=== PATIENT | male | born 1975 | race Caucasian/White ===

== ENCOUNTER 2021-07-19 18:20 | Inpatient (IN) | payer SELFPAY ==
[~2021-07-19] VITALS: Ht 175.3 cm; Wt 92.1 kg
[2021-07-19] MEDS: ATORVASTATIN 20 MG TAB PO SCH (06:28)
[2021-07-19] MEDS: NACL 0.9% 1,000 ML IV SCH (06:28)
[2021-07-19 18:26] VITALS: BP 234/112
--- NOTE | 2021-07-19 19:05 | NUR ---
[facility] ASSISTANT CONTACTED CT REGARDING CODE BRAIN; TECH REPORTS 10-15 MINUTE ETA D/T PERFORMING A PROCEDURE ON ANOTHER PT.
[2021-07-19 19:19] LABS: BASOPHILS % (AUTO) 0.5 % (0.0-2.0); EOSINOPHILS # (AUTO) 0.2 K/uL (0-0.4); EOSINOPHILS % (AUTO) 2.8 % (0.0-4.0); HEMATOCRIT 41.7 % (36-52); HEMOGLOBIN 14.6 g/dL (12.0-18.0); LYMPHOCYTES # (AUTO) 1.5 K/uL (2.0-11.5); LYMPHOCYTES % (AUTO) 24.3 % (20.5-51.1); MEAN CORPUSCULAR HEMOGLOBIN 29 pg (27-31); MEAN CORPUSCULAR HGB CONC 35 g/dL (33-37); MEAN CORPUSCULAR VOLUME 83.1 fL (80-94); MONOCYTES # (AUTO) 0.6 K/uL (0.8-1.0); MONOCYTES % (AUTO) 10.5 % (1.7-9.3); NEUTROPHILS # (AUTO) 3.7 K/uL (1.8-7.7); NEUTROPHILS % (AUTO) 61.9 % (42.2-75.2); PLATELET COUNT (AUTO) 198 K/uL (140-450); RED BLOOD CELL COUNT(AUTO) 5.02 MIL/uL (4.20-6.10); RED CELL DISTRIBUTION WIDTH 13.5 % (11.6-13.7); WHITE BLOOD COUNT (AUTO) 6.1 K/uL (4.8-10.8)
--- NOTE | 2021-07-19 19:22 | NUR ---
Report and transfer of care endorsed to RALPH Stanton.
[2021-07-19 19:43] LABS: ALBUMIN 3.8 g/dL (3.4-5.0); ANION GAP 13.1 (8-16); CARBON DIOXIDE 27.7 mmol/L (21-32); CREATININE 1.2 mg/dL (0.6-1.3); TOTAL BILIRUBIN 0.6 mg/dL (0.0-1.0)
[2021-07-19 19:46] LABS: POTASSIUM 2.8 mmol/L (3.5-5.1)
--- NOTE | 2021-07-19 19:53 | NUR ---
received pt from day shift RALPH Myers. pt currently a/o x 4, gcs 15. able to move all extremities freely. pt is a 46 year old male with hx of HTN coming from home for cc poss stroke s/sx. LKW 0630 today. sts that he had dysarthria, paresthesias that both have resolved ever since. currently performed [facility] and is score of 0. dysphagia screen pass. noted BP to be 220s each time. Dr Cruz notified. sts wait until read result of CT.
--- NOTE | 2021-07-19 20:35 | NUR ---
pt taken to CT scan via [facility].
--- NOTE | 2021-07-19 21:00 | NUR ---
pt returned to CT via [facility]
[2021-07-19] MEDS ORDERED: hydrALAZINE 20 MG/ML VIAL IVP ONE (21:50)
--- NOTE | 2021-07-19 22:16 | NUR ---
Dr. Cruz with pt for E
[2021-07-19] MEDS ORDERED: KCL 20 MEQ/WATER INJ PREMIX 100 ML IV ONE (22:35)
[2021-07-19] MEDS ORDERED: ASPIRIN 325 MG TAB PO ONE (22:35)
[2021-07-19] MEDS ORDERED: ONDANSETRON 4 MG/2 ML VIAL IM/IVP PRN (23:00)
[2021-07-19] MEDS ORDERED: lisinopriL 20 MG TAB PO SCH (23:00)
[2021-07-19] MEDS ORDERED: DOCUSATE SODIUM 100 MG GELCAP PO PRN (23:00)
[2021-07-19] MEDS ORDERED: HYDROcodone/APAP 7.5/325 MG 1 TAB PO PRN (23:00)
[2021-07-19] MEDS ORDERED: ACETAMINOPHEN 325 MG TAB PO PRN (23:00)
[2021-07-19] MEDS ORDERED: ZOLPIDEM 5 MG TAB PO PRN (23:00)
[2021-07-19] MEDS ORDERED: POTASSIUM CHLORIDE 10 MEQ TABER PO PRN (23:00)
[2021-07-19] MEDS ORDERED: guaiFENesin DM 200/20 MG-10 ML 10 ML UDC PO PRN (23:00)
[2021-07-19 23:51] LABS: CHOL/HDL RATIO 4.6 (1-4.5); FREE T4 (FREE THYROXINE) 1.03 ng/dL (0.76-1.46); MAGNESIUM 2.4 mg/dL (1.8-2.4); PHOSPHORUS 3.3 mg/dL (2.5-4.9); THYROID STIMULATING HORMONE 1.13 uIU/mL (0.34-3.74)
--- NOTE | 2021-07-20 01:08 | NUR ---
NAD at this time. pt currently asleep. arousable via verbal stimuli. VSS on RA
--- NOTE | 2021-07-20 02:50 | NUR ---
provided pt with urinal. NAD at this time.
--- NOTE | 2021-07-20 04:40 | NUR ---
observed pt to be asleep. arousable via verbal stimuli. laying down in semi fowlers position.
--- NOTE | 2021-07-20 06:31 | NUR ---
pt ambulated to restroom at this time with steady gait.
--- NOTE | 2021-07-20 07:48 | NUR ---
RECEIVED REPORT FROM RALPH GAINES. TRANSFER OF CARE AT THIS TIME.
--- NOTE | 2021-07-20 08:17 | NUR ---
PT PROVIDED WITH BREAKFAST TRAY, HOB ELEVATED, VSS, WILL CONTINUE TO MONITOR.
--- NOTE | 2021-07-20 09:23 | NUR ---
PATIENT HAS BEEN SCREENED AND CATEGORIZED MODERATE NUTRITION RISK. PATIENT WILL BE SEEN WITHIN 3-5 DAYS OF ADMISSION. 07/22/2021-07/24/[address]
--- NOTE | 2021-07-20 10:00 | NUR ---
PT RESTING IN BED, VISIBLE EQUAL RISE AND FALL OF CHEST, VSS, WILL CONTINUE TO MONITOR.
[2021-07-20] MEDS: hydrALAZINE 20 MG/ML VIAL IVP PRN ×2 (10:33→18:30)
[2021-07-20] MEDS: ASPIRIN 81 MG TAB.CHEW PO SCH (10:54)
[2021-07-20] MEDS: PANTOPRAZOLE 40 MG TABEC PO SCH (10:56)
[2021-07-20] MEDS ORDERED: ATORVASTATIN 20 MG TAB PO SCH (11:15)
[2021-07-20 11:29] LABS: BASOPHILS % (AUTO) 0.4 % (0.0-2.0); EOSINOPHILS % (AUTO) 0.6 % (0.0-4.0); HEMATOCRIT 42.2 % (36-52); HEMOGLOBIN 14.7 g/dL (12.0-18.0); LYMPHOCYTES # (AUTO) 0.9 K/uL (2.0-11.5); LYMPHOCYTES % (AUTO) 14.3 % (20.5-51.1); MEAN CORPUSCULAR HEMOGLOBIN 29 pg (27-31); MEAN CORPUSCULAR HGB CONC 35 g/dL (33-37); MEAN CORPUSCULAR VOLUME 83.4 fL (80-94); MONOCYTES # (AUTO) 0.4 K/uL (0.8-1.0); MONOCYTES % (AUTO) 6.4 % (1.7-9.3); NEUTROPHILS # (AUTO) 5.2 K/uL (1.8-7.7); NEUTROPHILS % (AUTO) 78.3 % (42.2-75.2); PLATELET COUNT (AUTO) 184 K/uL (140-450); RED BLOOD CELL COUNT(AUTO) 5.06 MIL/uL (4.20-6.10); RED CELL DISTRIBUTION WIDTH 13.8 % (11.6-13.7); WHITE BLOOD COUNT (AUTO) 6.6 K/uL (4.8-10.8)
[2021-07-20 12:02] LABS: ANION GAP 10.8 (8-16); CARBON DIOXIDE 29.3 mmol/L (21-32); POTASSIUM 3.1 mmol/L (3.5-5.1)
--- NOTE | 2021-07-20 12:19 | NUR ---
PT PROVIDED WITH LUNCH TRAY, VSS, WILL CONTINUE TO MONITOR.
[2021-07-20] MEDS: METOPROLOL 50 MG TAB PO SCH ×2 (14:05→22:11)
--- NOTE | 2021-07-20 14:31 | NUR ---
PT SLEEPING, EASILY AROUSABLE, VSS, WILL CONTINUE TO MONITOR.
--- NOTE | 2021-07-20 18:03 | NUR ---
PT PROVIDED WITH DINNER TRAY, HOB ELEVATED, VSS, WILL CONTINUE TO MONITOR.
--- NOTE | 2021-07-20 18:17 | NUR ---
EMPTIED 450CC OF CLEAR YELLOW URINE FROM URINAL.
[2021-07-20] MEDS: NACL 0.9% 1,000 ML IV SCH (18:29)
--- NOTE | 2021-07-20 19:30 | NUR ---
GAVE REPORT TO RALPH YA. TRANSFER OF CARE AT THIS TIME.
[2021-07-20] MEDS: ATORVASTATIN 20 MG TAB PO SCH (22:11)
--- NOTE | 2021-07-21 07:33 | NUR ---
GAVE TRANSFER OF CARE REPORT TO ONUR Chadwick RN AT THIS TIME.
--- NOTE | 2021-07-21 07:34 | NUR ---
RECEIVED REPORT FROM RALPH JCTONAL REGULATOR OF CARE AT THIS TIME.
[2021-07-21 07:44] LABS: BASOPHILS # (AUTO) 0.1 K/uL (0.00-0.22); BASOPHILS % (AUTO) 0.8 % (0.0-2.0); EOSINOPHILS # (AUTO) 0.1 K/uL (0-0.4); EOSINOPHILS % (AUTO) 2.1 % (0.0-4.0); HEMATOCRIT 42.1 % (36-52); HEMOGLOBIN 14.6 g/dL (12.0-18.0); LYMPHOCYTES # (AUTO) 1.4 K/uL (2.0-11.5); LYMPHOCYTES % (AUTO) 19.6 % (20.5-51.1); MEAN CORPUSCULAR HEMOGLOBIN 29 pg (27-31); MEAN CORPUSCULAR HGB CONC 35 g/dL (33-37); MEAN CORPUSCULAR VOLUME 83.8 fL (80-94); MONOCYTES # (AUTO) 0.7 K/uL (0.8-1.0); MONOCYTES % (AUTO) 9.9 % (1.7-9.3); NEUTROPHILS # (AUTO) 4.8 K/uL (1.8-7.7); NEUTROPHILS % (AUTO) 67.6 % (42.2-75.2); PLATELET COUNT (AUTO) 178 K/uL (140-450); RED BLOOD CELL COUNT(AUTO) 5.02 MIL/uL (4.20-6.10); RED CELL DISTRIBUTION WIDTH 13.9 % (11.6-13.7)
[2021-07-21 08:06] LABS: T4 (THYROXINE) 8.2 ug/dL (4.5-12.0)
[2021-07-21 08:46] LABS: ANION GAP 11.2 (8-16); CARBON DIOXIDE 28.4 mmol/L (21-32); CREATININE 1.1 mg/dL (0.6-1.3); POTASSIUM 3.6 mmol/L (3.5-5.1)
[2021-07-21] MEDS ORDERED: lisinopriL 20 MG TAB PO SCH (09:00)
[2021-07-21] MEDS: ASPIRIN 81 MG TAB.CHEW PO SCH (09:54)
[2021-07-21] MEDS: ATORVASTATIN 20 MG TAB PO SCH (09:55)
[2021-07-21] MEDS: METOPROLOL 50 MG TAB PO SCH (09:55)
[2021-07-21] MEDS: PANTOPRAZOLE 40 MG TABEC PO SCH (09:56)
[2021-07-21] MEDS: NACL 0.9% 1,000 ML IV SCH (10:02)
[2021-07-21] MEDS: hydrALAZINE 20 MG/ML VIAL IVP PRN (12:10)
[2021-07-21] MEDS ORDERED: hydrALAZINE 10 MG TAB PO SCH (13:00)
[2021-07-21 13:10] VITALS: BP 163/98
--- NOTE | 2021-07-21 13:41 | NUR ---
PT AMA FORM SIGNED. DR. GUERRERO MADE AWARE.
== END 2021-07-21 13:41 | disposition left against medical advice (07) | DRG 69 ==
LOC: MED 18:20 → MTU 23:56
PROVIDERS: ADMIT Family Medicine; ATTEND Family Medicine
DX: G45.9 Transient cerebral ischemic attack, unspecified (principal); I16.1 Hypertensive emergency; I67.4 Hypertensive encephalopathy; E78.2 Mixed hyperlipidemia; E86.0 Dehydration; E87.6 Hypokalemia; I10 Essential (primary) hypertension; Z20.822 Contact with and (suspected) exposure to COVID-19; Z89.022 Acquired absence of left finger(s); Z89.021 Acquired absence of right finger(s)
CPT/HCPCS: 36415; 70450; 71045; 80048; 80053; 82150; 83036; 83690; 83735; 83880; 84100; 84436; 84439; 84443; 84479; 84484; 85025; 85610; 85730; 93005; 96365; 96366; 96375; 99291; J0360; J3480; Q9967